=== PATIENT | male | born 1960 | race Caucasian/White ===

== ENCOUNTER 2020-12-03 11:53 | Inpatient (IN) | payer MEDICAID, OTHER ==
[~2020-12-03] VITALS: Ht 182.9 cm; Wt 136.0 kg
[2020-12-03] VITALS (15 sets, daily range): BP systolic 51–97; BP diastolic 21–56
[2020-12-03] MEDS ORDERED: MIDAZOLAM DRIP 50 mg/50mL 50 ML IV ONE (11:57)
[2020-12-03] MEDS ORDERED: ETOMIDATE (2MG/ML) 20ML VIAL IV ONE (12:15)
[2020-12-03] MEDS ORDERED: SUCCINYLCHOLINE CHLORIDE 20 MG/ML 10ML VIAL IV ONE (12:15)
[2020-12-03] MEDS ORDERED: fentaNYL Drip 2500mCg/250mlNS 250 ML IV SCH (12:15)
[2020-12-03] MEDS ORDERED: PROPOFOL 100 ML IV ONE (12:15)
[2020-12-03] MEDS ORDERED: MIDAZOLAM DRIP 50 mg/50mL 50 ML IV SCH (12:15)
[2020-12-03] MEDS ORDERED: PROPOFOL 100 ML IV SCH (12:15)
[2020-12-03] MEDS ORDERED: fentaNYL Drip 2500mCg/250mlNS 250 ML IV ONE (12:16)
[2020-12-03 12:26] LABS: Hematocrit 56.3 % (41.0-53.0); Hemoglobin 19.1 g/dL (13.5-17.5); Mean Corpuscular Hemoglobin 32.1 pg (28.0-32.0); Mean Corpuscular Hgb Conc. 33.9 g/dL (32.0-36.0); Mean Corpuscular Volume 94.6 fL (80.0-100.0); Red Blood Cells 5.95 10^6/uL (4.5-5.90); Red Cell Distribution Width 14.7 % (11.8-14.3); White Blood Cell 16.3 10^3/uL (4.4-10.8)
[2020-12-03 12:28] LABS: Band Neutrophils % (manual) 0; Basophils % (manual) 0 (0.0-2.0); Blast Cells 0; Metamyelocytes % 0; Myelocytes % 0; Promyelocytes % 0; Reactive Lymphocytes 0
[2020-12-03] MEDS ORDERED: NOREPINEPHRINE 8 MG/250ML KIT 250 ML IV ONE (12:31)
[2020-12-03 12:39] LABS: Calcium 8.9 mg/dL (8.5-10.1); Potassium 4.2 mmol/L (3.5-5.1)
[2020-12-03 12:44] LABS: Eosinophils % (manual) 1 (0-7); Lymphocytes % (manual) 35 (10.0-50.0); Monocytes % (manual) 10 (0-12)
[2020-12-03 12:45] LABS: BUN/Creatinine Ratio 9.7; Bilirubin, Total 0.5 mg/dL (0.2-1.0); Total Protein 8.2 g/dL (6.4-8.2)
[2020-12-03] MEDS ORDERED: NOREPINEPHRINE 8 MG/250ML KIT 250 ML IV SCH (13:15)
[2020-12-03] MEDS ORDERED: IOHEXOL 300 MG/ML 100ML BOTTLE IJ ONE (13:26)
[2020-12-03] MEDS ORDERED: HEPARIN SODIUM (PORCINE) 5000 UNITS/ML 1ML VIAL IV ONE (14:15)
[2020-12-03] MEDS ORDERED: IODIXANOL 320MG/ML 100ML BTL IV ONE ×2 (14:30→16:39)
[2020-12-03] MEDS ORDERED: LIDOCAINE 2%HCL (LOCAL ANESTH.) INJ 20ML MDV ONE (14:30)
[2020-12-03 14:49] LABS: INR 1.12 (0.9-1.15); Partial Thromboplastin Time 28.2 sec (23.6-33.0)
[2020-12-03] MEDS ORDERED: EPINEPHrine HCL 1 MG/10 ML SYRG ONE (15:44)
[2020-12-03] MEDS ORDERED: ATROPINE SULF 1 MG/10ml SYR ONE (15:44)
[2020-12-03] MEDS ORDERED: HEPARIN SODIUM (PORCINE) 5000 UNITS/ML 1ML VIAL ONE (16:57)
[2020-12-03] MEDS ORDERED: MORPHINE SULFATE INJECTION 2 MG/ML SYRG IV PRN ×2 (17:15→20:30)
[2020-12-03] MEDS ORDERED: NITROGLYCERIN 0.4 MG SL TAB SL PRN ×2 (17:15→20:30)
[2020-12-03] MEDS ORDERED: HEPARIN DRIP/D5W 100UNITS/ML 250 ML IV SCH (18:00)
[2020-12-03] MEDS ORDERED: levoFLOXacin 500MG 100 ML IV ONE (18:00)
[2020-12-03] MEDS ORDERED: DOPamine 1600MCG/ML D5W 250 ML IV ONE (19:10)
[2020-12-03] MEDS ORDERED: AMIODARONE 450mg/250ml AE 250 ML IV SCH (19:45)
[2020-12-03 20:27] LABS: Hematocrit 43.7 % (41.0-53.0); Hemoglobin 13.9 g/dL (13.5-17.5); Mean Corpuscular Hemoglobin 31.6 pg (28.0-32.0); Mean Corpuscular Hgb Conc. 31.7 g/dL (32.0-36.0); Mean Corpuscular Volume 99.6 fL (80.0-100.0); Red Blood Cells 4.39 10^6/uL (4.5-5.90); Red Cell Distribution Width 14.9 % (11.8-14.3)
[2020-12-03] MEDS ORDERED: HEPARIN DRIP/D5W 100UNITS/ML 250 ML IV PRN (20:30)
[2020-12-03 20:44] LABS: Basophils % (manual) 0 (0.0-2.0); Blast Cells 0; Metamyelocytes % 0; Myelocytes % 0; Promyelocytes % 0
[2020-12-03] MEDS ORDERED: VASOPRESSIN 50 UNITS in D5W 5% 247.5 ML IV SCH (20:45)
[2020-12-03] MEDS ORDERED: PHENYLEPHRINE IV 250 ML IV SCH (20:45)
[2020-12-03 21:03] LABS: Band Neutrophils % (manual) 4; Eosinophils % (manual) 1 (0-7); Lymphocytes % (manual) 23 (10.0-50.0); Monocytes % (manual) 6 (0-12); Reactive Lymphocytes 2
[2020-12-03] MEDS ORDERED: SODIUM BICARBONATE 8.4% INJ 50ML SYRINGE ONE ×2 (22:10→23:35)
[2020-12-03] MEDS ORDERED: SODIUM BICARBONATE 8.4 % INJ 50ML VIAL IV ONE ×3 (22:15→23:45)
[2020-12-03] MEDS ORDERED: EPINEPHrine HCL 250 ML IV SCH (22:15)
[2020-12-04] VITALS: BP 77/51
[2020-12-04 02:28] VITALS: BP 80/50
[2020-12-04 02:32] LABS: Hemoglobin 14.6 g/dL (13.5-17.5); Mean Corpuscular Hemoglobin 32.9 pg (28.0-32.0); Mean Corpuscular Hgb Conc. 33.9 g/dL (32.0-36.0); Mean Corpuscular Volume 96.9 fL (80.0-100.0); Red Blood Cells 4.44 10^6/uL (4.5-5.90); Red Cell Distribution Width 14.6 % (11.8-14.3); White Blood Cell 23.9 10^3/uL (4.4-10.8)
[2020-12-04 02:53] LABS: Basophils % (manual) 0 (0.0-2.0); Blast Cells 0; Eosinophils % (manual) 0 (0-7); Metamyelocytes % 0; Promyelocytes % 0
[2020-12-04 03:27] LABS: Band Neutrophils % (manual) 28; Lymphocytes % (manual) 19 (10.0-50.0); Monocytes % (manual) 6 (0-12); Myelocytes % 1; Reactive Lymphocytes 2
[2020-12-04 04:16] LABS: BUN/Creatinine Ratio 8.4; Calcium 7.1 mg/dL (8.5-10.1); Potassium 5.5 mmol/L (3.5-5.1)
[2020-12-04] MEDS ORDERED: EPINEPHrine HCL 1 MG/10 ML SYRG IV ONE (09:14)
[2020-12-04] MEDS ORDERED: ADENOSINE 6 MG/2 ML INJ IV ONE (09:14)
[2020-12-04] MEDS ORDERED: LIDOCAINE HCL 100 MG/5ML (2%) SYRG INJ IV ONE (09:14)
[2020-12-04] MEDS ORDERED: levoFLOXacin 500MG 100 ML IV SCH (10:00)
== END 2020-12-04 09:15 | DRG 134 ==
LOC: ER 11:53 → EDBD 11:53 → ICU WEST 17:06
PROVIDERS: ADMIT Internal Medicine; ATTEND Internal Medicine
PROC: 02CR3ZZ Extirpation of Matter from Left Pulmonary Artery, Percutaneous Approach (ICD-10-PCS; principal; 2020-12-03)
PROC: 02CQ3ZZ Extirpation of Matter from Right Pulmonary Artery, Percutaneous Approach (ICD-10-PCS; 2020-12-03)
PROC: 0BH17EZ Insertion of Endotracheal Airway into Trachea, Via Natural or Artificial Opening (ICD-10-PCS; 2020-12-03)
PROC: 5A1945Z Respiratory Ventilation, 24-96 Consecutive Hours (ICD-10-PCS; 2020-12-03)
PROC: 5A12012 Performance of Cardiac Output, Single, Manual (ICD-10-PCS; 2020-12-04)
PROC: 06HY33Z Insertion of Infusion Device into Lower Vein, Percutaneous Approach (ICD-10-PCS; 2020-12-04)
DX: I26.02 Saddle embolus of pulmonary artery with acute cor pulmonale (principal); I46.9 Cardiac arrest, cause unspecified; J96.01 Acute respiratory failure with hypoxia; J96.02 Acute respiratory failure with hypercapnia; N17.9 Acute kidney failure, unspecified; D72.829 Elevated white blood cell count, unspecified; Z66 Do not resuscitate; D75.1 Secondary polycythemia; I27.20 Pulmonary hypertension, unspecified; J44.9 Chronic obstructive pulmonary disease, unspecified; F17.200 Nicotine dependence, unspecified, uncomplicated; Z20.822 Contact with and (suspected) exposure to COVID-19
CPT/HCPCS: 31500; 33915; 36415; 36556; 36600; 71045; 71260; 76000; 76942; 80048; 80053; 82805; 83880; 84484; 85007; 85027; 85379; 85610; 85730; 87040; 87070; 87077; 87081; 87186; 87205; 87426; 92950; 93005; 94002; 94003; 96365; 99152; 99153; 99291; G0378; J0153; J0171; J2250; J2704; J7060; Q9967